=== PATIENT | male | born 1990 | race African-American/Black ===

== ENCOUNTER 2018-06-17 16:49 | Emergency (ER) | payer OTHER ==
[2018-06-17] MEDS ORDERED: MORPHINE SULFATE 4 MG/ML SYRINGE IVP STA (17:03)
[2018-06-17] MEDS ORDERED: SODIUM CHLORIDE 0.9% 1,000 ML IV ONE (17:03)
[2018-06-17] MEDS ORDERED: KETOROLAC 30 MG/ML 1 ML VIAL IVP STA (17:03)
[2018-06-17] MEDS ORDERED: DIPH,PERTUS(ACELL)TETVAC-LF 0.5 ML VIAL IM ONE (17:04)
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
[2018-06-17 17:37] VITALS: BP 131/60; PULSE 71; RESP 20; TEMP 98.5
== END 2018-06-17 17:37 | disposition home or self-care (01) ==
LOC: EC 16:49
DX: T22.212A Burn of second degree of left forearm, initial encounter (principal); T31.0 Burns involving less than 10% of body surface; F17.200 Nicotine dependence, unspecified, uncomplicated; Z23 Encounter for immunization; X08.8XXA Exposure to other specified smoke, fire and flames, initial encounter; Y92.009 Unspecified place in unspecified non-institutional (private) residence as the place of occurrence of the external cause
CPT/HCPCS: 90715; 99284; 16020; 96374; 96375; 90471; J2270; J1885

== ENCOUNTER 2022-04-11 10:13 | Emergency (ER) | payer OTHER ==
[2022-04-11 10:20] VITALS: RESP 18
[2022-04-11] MEDS ORDERED: FAMOTIDINE 20 MG/2 ML VIAL IV STA (10:44)
[2022-04-11] MEDS ORDERED: ONDANSETRON 4 MG/2 ML VIAL IVP STA (10:44)
[2022-04-11] MEDS ORDERED: SODIUM CHLORIDE 0.9% 1,000 ML IV STA (10:44)
--- NOTE | 2022-04-11 10:51 | ED ---
General Adult HPI - General Chief complaint: Nausea/Vomiting/Diarrhea Stated complaint: Vomiting Time Seen by Provider: 04/11/22 10:30 Source: patient, RN notes reviewed, old records reviewed Mode of arrival: wheelchair Limitations: no limitations - History of Present Illness Initial comments: 32-year-old male alert and oriented 4 presents to the emergency room with his mom complaining of nausea and vomiting since Wednesday. Patient states that he thinks he has sun poisoning as he has had this in the past and he is a composition roofer. Patient states it was a hot day on Wednesday while working on the roof when he started to feel sick. He started vomiting that evening and has been vomiting every day since. He has tried oral fluids and been unable to keep anything down. He denies any fevers, no abdominal pain, chest pain or difficulty in breathing. He has no medical history. He states that he does not take any medication on a daily basis. He is a nonsmoker, denies alcohol or drug use but does state smokes marijuana occasionally. Mom concerned that his eyes looked yellow today. -: days(s) (5) Location: abdomen Severity scale (1-10): 3 Consistency: constant Associated Symptoms: loss of appetite, nausea/vomiting, weakness Treatments Prior to Arrival: none - Related Data Home Medications Medication Instructions Recorded Confirmed No Known Home Medications 04/11/22 04/11/22 Allergies Allergy/AdvReac Type Severity Reaction Status Date / Time No Known Allergies Allergy Verified 04/11/22 14:08 Review of Systems ROS Statement: Those systems with pertinent positive or pertinent negative responses have been documented in the HPI. ROS Other: All systems not noted in ROS Statement are negative. Past Medical History Past Medical History: No Reported History Additional Past Medical History / Comment(s): ADHD History of Any Multi-Drug Resistant Organisms: None Reported Past Surgical History: No Surgical Hx Reported Past Psychological History: No Psychological Hx Reported Smoking Status: Current every day smoker Past Alcohol Use History: Occasional Past Drug Use History: Marijuana - Past Family History Mother Family Medical History: Diabetes Mellitus, Hypertension General Exam Limitations: no limitations General appearance: alert, in no apparent distress Head exam: Present: atraumatic Eye exam: Present: normal appearance, PERRL, EOMI. Absent: scleral icterus, conjunctival injection, periorbital swelling, periorbital tenderness ENT exam: Present: mucous membranes moist Neck exam: Present: normal inspection, full ROM. Absent: tenderness, meningismus Respiratory exam: Present: normal lung sounds bilaterally. Absent: respiratory distress, accessory muscle use Cardiovascular Exam: Present: tachycardia, normal heart sounds GI/Abdominal exam: Present: soft. Absent: distended, tenderness, rigid Extremities exam: Present: normal inspection, full ROM, normal capillary refill. Absent: tenderness, pedal edema Back exam: Present: normal inspection, full ROM. Absent: tenderness, CVA tenderness (R), CVA tenderness (L), rash noted Neurological exam: Present: alert, oriented X3 Psychiatric exam: Present: normal affect, normal mood Skin exam: Present: warm, dry, normal color. Absent: cyanosis, diaphoretic, petechiae, pallor Course Vital Signs 04/11/22 04/11/22 04/11/22 10:16 10:44 12:21 Temperature 97.7 F Pulse Rate 100 81 84 Respiratory 18 18 18 Rate Blood Pressure 123/79 138/106 135/89 O2 Sat by Pulse 97 100 99 Oximetry 04/11/22 14:33 Temperature 97.9 F Pulse Rate 80 Respiratory 18 Rate Blood Pressure 135/77 O2 Sat by Pulse 100 Oximetry Medical Decision Making - Medical Decision Making Electrolytes show dehydration. Patient was given 2 L of normal saline. UA was sent for culture. Patient has no complaints of dysuria or abdominal pain. He states he is feeling much better and ready to be discharged home. He was encouraged to increase his fluid intake while at work and follow-up with his primary care doctor next week as needed. Case discussed with Dr. Dutton. - Lab Data Result diagrams: 04/11/22 10:57 04/11/22 10:57 Lab Results 04/11/22 04/11/22 04/11/22 Range/Units 10:57 10:57 10:57 WBC 11.3 H (3.8-10.6) k/uL RBC 6.02 H (4.30-5.90) m/uL Hgb 17.9 H (13.0-17.5) gm/dL Hct 53.1 H (39.0-53.0) % MCV 88.2 (80.0-100.0) fL MCH 29.8 (25.0-35.0) pg MCHC 33.8 (31.0-37.0) g/dL RDW 12.6 (11.5-15.5) % Plt Count 330 (150-450) k/uL MPV 7.7 Neutrophils % 77 % Lymphocytes % 16 % Monocytes % 6 % Eosinophils % 1 % Basophils % 0 % Neutrophils # 8.7 H (1.3-7.7) k/uL Lymphocytes # 1.8 (1.0-4.8) k/uL Monocytes # 0.6 (0-1.0) k/uL Eosinophils # 0.1 (0-0.7) k/uL Basophils # 0.0 (0-0.2) k/uL Sodium 132 L (137-145) mmol/L Potassium 4.0 (3.5-5.1) mmol/L Chloride 80 L (98-107) mmol/L Carbon Dioxide 39 H (22-30) mmol/L Anion Gap 13 mmol/L BUN 46 H (9-20) mg/dL Creatinine 1.13 (0.66-1.25) mg/dL Est GFR (CKD-EPI)AfAm >90 (>60 ml/min/1.73 sqM) Est GFR (CKD-EPI)NonAf 87 (>60 ml/min/1.73 sqM) Glucose 117 H (74-99) mg/dL Calcium 10.5 H (8.4-10.2) mg/dL Total Bilirubin 2.1 H (0.2-1.3) mg/dL AST 26 (17-59) U/L ALT 26 (4-49) U/L Alkaline Phosphatase 85 (38-126) U/L Total Protein 10.3 H (6.3-8.2) g/dL Albumin 5.4 H (3.5-5.0) g/dL Amylase 79 (30-110) U/L Lipase 54 (23-300) U/L Urine Color Yellow Urine Appearance Clear (Clear) Urine pH 6.5 (5.0-8.0) Ur Specific [place] 1.027 (1.001-1.035) Urine Protein 1+ H (Negative) Urine Glucose (UA) Negative (Negative) Urine Ketones 1+ H (Negative) Urine Blood Negative (Negative) Urine Nitrite Negative (Negative) Urine Bilirubin Negative (Negative) Urine Urobilinogen 6.0 (<2.0) mg/dL Ur Leukocyte Esterase Small H (Negative) Urine RBC 1 (0-5) /hpf Urine WBC 12 H (0-5) /hpf Ur Squamous Epith Cells <1 (0-4) /hpf Hyaline Casts 7 H (0-2) /lpf Urine Mucus Rare H (None) /hpf Disposition Clinical Impression: Dehydration Disposition: HOME SELF-CARE Condition: Good Instructions (If sedation given, give patient instructions): Dehydration (ED), Acute Nausea and Vomiting (ED) Additional Instructions: Increase your fluid intake and stay hydrated while at work. Return to the emergency room with any new or concerning symptoms. Follow up with your primary care doctor next week for reevaluation. Is patient prescribed a controlled substance at d/c from ED?: No Referrals: None,Stated [Primary Care Provider] - 1-2 days Time of Disposition: 12:29
[2022-04-11 11:15] LABS: Basophils % (A) 0 %; Eosinophils # (A) 0.1 k/uL (0-0.7); Eosinophils % (A) 1 %; HCT 53.1 % (39.0-53.0); HGB 17.9 gm/dL (13.0-17.5); Lymphocytes # (A) 1.8 k/uL (1.0-4.8); Lymphocytes % (A) 16 %; MCH 29.8 pg (25.0-35.0); MCHC 33.8 g/dL (31.0-37.0); MCV 88.2 fL (80.0-100.0); Mean Platelet Volume 7.7; Monocytes # (A) 0.6 k/uL (0-1.0); Monocytes % (A) 6 %; Neutrophils # (A) 8.7 k/uL (1.3-7.7); Neutrophils % (A) 77 %; Platelet Count 330 k/uL (150-450); RBC 6.02 m/uL (4.30-5.90); RDW 12.6 % (11.5-15.5); WBC 11.3 k/uL (3.8-10.6)
[2022-04-11 11:19] LABS: ALT 26 U/L (4-49); AST 26 U/L (17-59); African American GFR (CKD) >90 (>60 ml/min/1.73 sqM); Albumin 5.4 g/dL (3.5-5.0); Alkaline Phosphatase 85 U/L (38-126); Amylase 79 U/L (30-110); Anion Gap 13 mmol/L; Blood Urea Nitrogen 46 mg/dL (9-20); Calcium 10.5 mg/dL (8.4-10.2); Carbon Dioxide 39 mmol/L (22-30); Chloride 80 mmol/L (98-107); Glucose 117 mg/dL (74-99); Lipase 54 U/L (23-300); Non-African American GFR(CKD) 87 (>60 ml/min/1.73 sqM); Sodium 132 mmol/L (137-145); Total Bilirubin 2.1 mg/dL (0.2-1.3); Total Protein 10.3 g/dL (6.3-8.2)
[2022-04-11] MEDS ORDERED: SODIUM CHLORIDE 0.9% 500 ML 500 ML IV ONE ×2 (11:34→11:42)
[2022-04-11 12:07] LABS: Appearance,Urine Clear (Clear); Bilirubin,Urine Negative (Negative); Blood,Urine Negative (Negative); Color,Urine Yellow; Glucose,Urine (UA) Negative (Negative); Hyaline Casts,Urine 7 /lpf (0-2); Ketones,Urine 1+ (Negative); Leukocyte Esterase,Urine Small (Negative); Mucus,Urine Rare /hpf; Nitrite,Urine Negative (Negative); PH, Urine 6.5 (5.0-8.0); Protein,Urine 1+ (Negative); RBC,Urine 1 /hpf (0-5); Specific Gravity,Urine 1.027 (1.001-1.035); Squamous Epithelial Cell,Urine <1 /hpf (0-4); WBC,Urine 12 /hpf (0-5)
[2022-04-11 14:35] VITALS: BP 135/77; PULSE 80; TEMP 97.9
== END 2022-04-11 14:34 | disposition home or self-care (01) ==
LOC: EC 10:13
DX: E86.0 Dehydration (principal); R11.2 Nausea with vomiting, unspecified; R19.7 Diarrhea, unspecified; F17.200 Nicotine dependence, unspecified, uncomplicated
CPT/HCPCS: 36415; 80053; 82150; 83690; 85025; 81001; 99284; 96374; 96375; 96361; J2405